=== PATIENT | male | born 1970 | race Caucasian/White ===

== ENCOUNTER 2018-02-10 18:13 | Emergency (ER) | payer OTHER ==
[~2018-02-10] VITALS: Ht 167.6 cm; Wt 100.0 kg
[2018-02-10 18:33] LABS: GLUCOSE,POINT OF CARE 242 MG/DL (70-110)
[2018-02-10] MEDS ORDERED: CYCLOBENZAPRINE HCL 10 MG TABLET PO ONE (18:45)
[2018-02-10] MEDS ORDERED: METF500T4 PO (18:48)
[2018-02-10] MEDS ORDERED: CHOLESTEROL PO (18:48)
[2018-02-10] MEDS ORDERED: DIABETIC PO (18:48)
[2018-02-10] MEDS ORDERED: BLOOD PRESSURE PO (18:48)
[2018-02-10 19:51] VITALS: BP 130/79
== END 2018-02-10 19:52 | disposition home or self-care (01) ==
LOC: EMS 18:15
DX: M54.9 Dorsalgia, unspecified (principal); E11.65 Type 2 diabetes mellitus with hyperglycemia; E78.00 Pure hypercholesterolemia, unspecified; I10 Essential (primary) hypertension; Z88.6 Allergy status to analgesic agent
CPT/HCPCS: 82962; 99283

== ENCOUNTER 2018-04-10 15:32 | Inpatient (IN) | payer OTHER ==
[~2018-04-10] VITALS: Ht 167.6 cm; Wt 98.4 kg
[~2018-04-10 15:32] MED LIST: BLOOD PRESSURE PO; CHOLESTEROL PO; DIABETIC PO; METF500T6 PO
[2018-04-10] MEDS ORDERED: ROSU10 PO (15:40)
[2018-04-10] MEDS ORDERED: METF850T2 PO (15:40)
[2018-04-10] MEDS ORDERED: LOSA50TA37 PO (15:40)
[2018-04-10] MEDS ORDERED: ALOG12.5 PO (15:40)
[2018-04-10 15:43] LABS: GLUCOSE,POINT OF CARE 207 MG/DL (70-110)
[2018-04-10] MEDS ORDERED: ACETAMINOPHEN 500 MG TABLET PO ONE (16:15)
[2018-04-10] MEDS ORDERED: SODIUM CHLORIDE 0.9% 1,000 ML IV ONE (16:15)
[2018-04-10 16:37] LABS: BASOPHILS % (AUTO) 0.5 % (0.0-2.0); EOSINOPHILS % (AUTO) 0 % (1.0-6.0); HEMATOCRIT 45.5 % (41-53); HEMOGLOBIN 16.3 g/dL (13.5-17.5); LYMPHOCYTES # (AUTO) 1.2 K/uL (1.0-4.8); MEAN CORPUSCULAR HEMOGLOBIN 33.6 pg (26.0-34.0); MEAN CORPUSCULAR HGB CONC 35.9 G/dL (31.0-37.0); MEAN CORPUSCULAR VOLUME 94 fL (80-100); MONOCYTES # (AUTO) 0.6 K/uL (0.1-1.0); MONOCYTES % (AUTO) 4.6 % (2.0-9.0); NEUTROPHILS # (AUTO) 11.5 K/uL (1.8-7.7); NEUTROPHILS % (AUTO) 85.9 % (40.0-70.0); PLATELET COUNT (AUTO) 256 K/uL (150-450); RED BLOOD CELL COUNT(AUTO) 4.85 MIL/uL (4.50-5.90); RED CELL DISTRIBUTION WIDTH 13.2 % (11.5-14.5)
[2018-04-10 16:43] LABS: ANION GAP 11 mmol/L (8-16); CALCIUM, TOTAL 8.5 mg/dL (8.8-10.5); CARBON DIOXIDE 27 mmol/L (22-29); CHLORIDE 94 mmol/L (98-107); GLOMERULAR FILTR. RATE CALC > 60 mL/min (>60); GLUCOSE,RANDOM 169 mg/dL (70-110); POTASSIUM 3.6 mmol/L (3.5-5.1); SODIUM SERUM 132 mmol/L (136-145); UREA NITROGEN, BLOOD 16 mg/dL (7-18)
[2018-04-10 16:55] LABS: PLATELET MORPHOLOGY COMMENT LARGE PLTS PRESENT
[2018-04-10 17:16] LABS: ALANINE AMINOTRANSFERASE 63 U/L (12-78); ALBUMIN 4.4 g/dL (3.4-5.0); ALKALINE PHOSPHATASE 87 U/L (46-116); ASPARTATE AMINOTRANSFERASE 35 U/L (15-37); BILIRUBIN,TOTAL 1.1 mg/dL (0.1-1.0); CREATINE KINASE MB 2.7 ng/mL (0-5); CREATINE KINASE, TOTAL 253 U/L (39-308); TOTAL PROTEIN, SERUM 8.4 g/dL (6.4-8.2)
[2018-04-10 18:49] LABS: APPEARANCE,URINE CLEAR (CLEAR); BILIRUBIN,URINE NEGATIVE (NEGATIVE); GLUCOSE, URINE (UA) NEGATIVE (NEGATIVE); KETONES,URINE NEGATIVE (NEGATIVE); LEUKOCYTE ESTERASE ,URINE NEGATIVE (NEGATIVE); NITRATE,URINE NEGATIVE (NEGATIVE); OCCULT BLOOD,URINE TRACE (NEGATIVE); PH,URINE 5.5 (5.0-8.0); PROTEIN,URINE NEGATIVE (NEGATIVE); UROBILINOGEN,URINE 0.2 mg/dL (<=1.0)
[2018-04-10 19:04] LABS: BACTERIA,URINE None Seen /HPF (None Seen); RBC,URINE 0-2 /HPF (0-2); SQUAMOUS EPITHELIAL CELL,UR Rare /LPF (None Seen); WBC,URINE None Seen /HPF (0-5)
[2018-04-10 19:18] LABS: GLUCOSE,POINT OF CARE 147 MG/DL (70-110)
[2018-04-10 21:22] LABS: GLUCOSE,POINT OF CARE 156 MG/DL (70-110)
[2018-04-10] MEDS ORDERED: ONDANSETRON HCL 4 MG/2 ML VIAL IVP PRN ×2 (21:45→23:00)
[2018-04-10] MEDS ORDERED: HEPARIN SODIUM,PORCINE 5,000 UNITS/ML VIAL IVP ONE ×2 (21:45)
[2018-04-10] MEDS ORDERED: ACETAMINOPHEN 325 MG TABLET PO PRN (21:45)
[2018-04-10] MEDS ORDERED: 0.9% SODIUM CHLORIDE 10 ML SYRINGE IVP PRN (21:45)
[2018-04-10] MEDS ORDERED: HEPARIN SODIUM,PORCINE 5,000 UNITS/ML VIAL IVP PRN ×2 (21:45)
[2018-04-10 22:03] LABS: INR 1.1 (0.9-1.1); PROTHROMBIN TIME 11.1 SEC (9.4-11.6)
[2018-04-10 22:35] VITALS: BP 116/68
[2018-04-10] MEDS ORDERED: MORPHINE SULFATE 4 MG/ML SYRINGE IVP PRN (23:00)
[2018-04-10] MEDS ORDERED: ZOLPIDEM TARTRATE 10 MG TABLET PO PRN (23:00)
[2018-04-10] MEDS ORDERED: MAGNESIUM HYDROXIDE SUSPENSION 30 ML UDCUP PO PRN (23:00)
[2018-04-10] MEDS ORDERED: HYDROCODONE/ACETAMINOPHEN 5-325 MG TABLET PO PRN (23:00)
[2018-04-10] MEDS ORDERED: PNEUMOCOCCAL VACCINE POLYVALENT 0.5 ML VIAL [PPSV23] IM ONE (23:15)
[2018-04-11] MEDS: NITROGLYCERIN 2% (1 GM=INCH) PACKET TP SCH ×4 (00:04→18:00)
[2018-04-11] MEDS: HEPARIN SODIUM 25000 UNITS/D5W 250 ML IV PRN ×2 (00:06→08:17)
[2018-04-11 00:36] VITALS: BP 128/59
[2018-04-11 04:05] VITALS: BP 106/55
[2018-04-11 06:45] LABS: BASOPHILS % (AUTO) 0.4 % (0.0-2.0); EOSINOPHILS % (AUTO) 0.7 % (1.0-6.0); HEMATOCRIT 41.3 % (41-53); HEMOGLOBIN 15.2 g/dL (13.5-17.5); LYMPHOCYTES # (AUTO) 1.9 K/uL (1.0-4.8); LYMPHOCYTES % (AUTO) 19.4 % (22.0-44.0); MEAN CORPUSCULAR HEMOGLOBIN 34.7 pg (26.0-34.0); MEAN CORPUSCULAR HGB CONC 36.8 G/dL (31.0-37.0); MEAN CORPUSCULAR VOLUME 94 fL (80-100); MONOCYTES # (AUTO) 0.6 K/uL (0.1-1.0); MONOCYTES % (AUTO) 6.1 % (2.0-9.0); NEUTROPHILS % (AUTO) 73.4 % (40.0-70.0); PLATELET COUNT (AUTO) 223 K/uL (150-450); RED BLOOD CELL COUNT(AUTO) 4.37 MIL/uL (4.50-5.90); RED CELL DISTRIBUTION WIDTH 13.1 % (11.5-14.5)
[2018-04-11 07:06] LABS: ALANINE AMINOTRANSFERASE 50 U/L (12-78); ALBUMIN 3.6 g/dL (3.4-5.0); ALKALINE PHOSPHATASE 64 U/L (46-116); ANION GAP 8 mmol/L (8-16); ASPARTATE AMINOTRANSFERASE 30 U/L (15-37); BILIRUBIN,TOTAL 1.1 mg/dL (0.1-1.0); CARBON DIOXIDE 28 mmol/L (22-29); CHLORIDE 98 mmol/L (98-107); CHOLESTEROL 110 mg/dL (131-200); CREATININE 0.92 mg/dL (0.60-1.30); GLOMERULAR FILTR. RATE CALC > 60 mL/min (>60); GLUCOSE,RANDOM 198 mg/dL (70-110); HDL CHOLESTEROL 37 mg/dL (40-60); LDL CHOL (CALC.) 62 mg/dL (0-130); POTASSIUM 3.1 mmol/L (3.5-5.1); SODIUM SERUM 134 mmol/L (136-145); TOTAL PROTEIN, SERUM 7.3 g/dL (6.4-8.2); TRIGLYCERIDES 56 mg/dL (15-150); UREA NITROGEN, BLOOD 14 mg/dL (7-18)
[2018-04-11] MEDS ORDERED: METOPROLOL TARTRATE 50 MG TABLET PO ONE ×2 (07:30→09:45)
[2018-04-11] MEDS ORDERED: POTASSIUM CHLORIDE 20 MEQ ER TABLET PO ONE (07:30)
[2018-04-11 07:38] VITALS: BP 111/69
[2018-04-11] MEDS: ACETAMINOPHEN 325 MG TABLET PO PRN ×2 (07:57→15:16)
[2018-04-11] MEDS ORDERED: PANTOPRAZOLE SODIUM 40 MG/VIAL IVP SCH (09:00)
[2018-04-11] MEDS ORDERED: [UNRECOGNIZED DRUG - OTHER] PO SCH (09:00)
[2018-04-11] MEDS ORDERED: DOCUSATE SODIUM 100 MG CAPSULE PO SCH (09:00)
[2018-04-11] MEDS ORDERED: LOSARTAN POTASSIUM 50 MG TABLET PO SCH (09:00)
[2018-04-11] MEDS ORDERED: ROSUVASTATIN CALCIUM 10 MG TABLET PO SCH (09:00)
[2018-04-11] MEDS ORDERED: METOPROLOL TARTRATE 5 MG/5 ML VIAL ONE (10:13)
[2018-04-11] MEDS ORDERED: NITROGLYCERIN 400 MCG/SUBLINGUAL SPRAY 4.9 GM BOTTLE SL ONE ×2 (10:13→10:40)
[2018-04-11] MEDS ORDERED: IOVERSOL 350 MG/ML 100 ML VIAL ONE (10:27)
[2018-04-11 12:00] VITALS: BP 104/59
[2018-04-11] MEDS ORDERED: ASPIRIN 81 MG CHEWABLE TABLET PO SCH (14:45)
[2018-04-11] MEDS ORDERED: NITROGLYCERIN 0.4 MG SUBLINGUAL TABLET #25 SL PRN (14:45)
[2018-04-11] MEDS ORDERED: MAGNESIUM SULFATE 2 GM in DEXTROSE 5%-WATER 50 ML IV PRN (15:00)
[2018-04-11] MEDS ORDERED: MAGNESIUM SULFATE 4 GM/WATER 100 ML IV PRN (15:00)
[2018-04-11] MEDS ORDERED: MAGNESIUM OXIDE 400 MG TABLET PO PRN (15:00)
[2018-04-11] MEDS ORDERED: SODIUM CHLORIDE 0.9% 50 ML ONE (15:33)
[2018-04-11 15:34] VITALS: BP 107/66
[2018-04-11] MEDS ORDERED: METO25XL PO ×2 (16:03→16:52)
[2018-04-11] MEDS ORDERED: NITR.4 SL ×2 (16:03→16:52)
[2018-04-11] MEDS ORDERED: METOPROLOL SUCCINATE 25 MG ER TABLET PO SCH (21:00)
[2018-04-11] MEDS ORDERED: METOPROLOL TARTRATE 25 MG TABLET PO SCH (21:00)
== END 2018-04-11 18:05 | disposition home or self-care (01) | DRG 303 ==
LOC: EMS 15:33 → 5S 21:16
PROVIDERS: ADMIT Hospitalist; ATTEND Hospitalist
DX: I25.110 Atherosclerotic heart disease of native coronary artery with unstable angina pectoris (principal); I51.4 Myocarditis, unspecified; E11.9 Type 2 diabetes mellitus without complications; I45.6 Pre-excitation syndrome; E78.00 Pure hypercholesterolemia, unspecified; E78.5 Hyperlipidemia, unspecified; E87.6 Hypokalemia; I10 Essential (primary) hypertension; Z90.49 Acquired absence of other specified parts of digestive tract; Z83.3 Family history of diabetes mellitus; Z82.49 Family history of ischemic heart disease and other diseases of the circulatory system; Z88.8 Allergy status to other drugs, medicaments and biological substances; Z79.84 Long term (current) use of oral hypoglycemic drugs; Z88.6 Allergy status to analgesic agent
CPT/HCPCS: 75574; 83735; 84132; 85379; 87040; 90471; 93005; 93306; 96360; 96361; 99291; C9113; J1644; J3475; J3490; J7030; J7050; J7060

== ENCOUNTER 2024-01-15 12:56 | Emergency (ER) | payer OTHER ==
[~2024-01-15] VITALS: Ht 167.6 cm; Wt 81.8 kg
[~2024-01-15 12:56] MED LIST changes: +ALOG12.5 PO; -BLOOD PRESSURE PO; -CHOLESTEROL PO; -DIABETIC PO; +LOSA-382 PO; +METF-445 PO; -METF500T6 PO; +METO25XL PO; +NITR0.4T52 SL; +ROSU10TA72 PO
[2024-01-15 13:01] VITALS: TEMP 98.1
[2024-01-15 13:16] LABS: GLUCOMETER DEV NAME(LOC) ER.6; GLUCOSE,POINT OF CARE 352 MG/DL (70-110)
[2024-01-15 14:07] VITALS: BP 138/77; PULSE 70; RESP 18
[2024-01-15] MEDS: SULFACETAMIDE SODIUM 10% 15 ML OPHTHALMIC SOLUTION OS ONE (14:08)
[2024-01-15] MEDS: ERYTHROMYCIN 0.5% 3.5 GM TUBE OPHTHALMIC OINTMENT OS ONE (14:08)
== END 2024-01-15 14:10 | disposition home or self-care (01) ==
LOC: EMS 12:56
DX: S00.212A Abrasion of left eyelid and periocular area, initial encounter (principal); E11.9 Type 2 diabetes mellitus without complications; E78.00 Pure hypercholesterolemia, unspecified; I10 Essential (primary) hypertension; Z90.49 Acquired absence of other specified parts of digestive tract; Z88.4 Allergy status to anesthetic agent; X58.XXXA Exposure to other specified factors, initial encounter; Y93.89 Activity, other specified; Y92.89 Other specified places as the place of occurrence of the external cause; Y99.8 Other external cause status
CPT/HCPCS: 82962; 99283